=== PATIENT | female | born 1980 | race Hispanic/Latino ===

== ENCOUNTER 2017-10-13 09:44 | Emergency (ER) | payer SELFPAY ==
[~2017-10-13] VITALS: Ht 160 cm; Wt 85.3 kg
== END 2017-10-13 10:20 | disposition home or self-care (01) ==
LOC: FSED 09:44
DX: R21 Rash and other nonspecific skin eruption (principal); I10 Essential (primary) hypertension
CPT/HCPCS: 99282

== ENCOUNTER 2020-01-04 11:51 | Emergency (ER) | payer SELFPAY ==
[~2020-01-04] VITALS: Ht 160 cm; Wt 86.2 kg
[2020-01-04] MEDS ORDERED: IBUPROFEN 400 MG TAB PO STA (12:23)
[2020-01-04] MEDS ORDERED: IBUPROFEN 200 MG TAB PO STA (12:23)
[2020-01-04] MEDS ORDERED: IBUPROFEN 400 MG TAB ONE (12:32)
--- NOTE | 2020-01-04 13:04 | Diagnostic Imaging Report ---
Right ankle, 3 views Right foot, 3 views INDICATION: ^pain s/p twisting ankle 3 days ago Comparison: None available. Discussion: Multiple views of the right ankle and foot are negative for acute displaced fracture or dislocation. Talar down ankle mortise are intact. Small tibiotalar joint effusion is noted. Tiny plantar calcaneal spur is noted. Joint spaces are relatively well-maintained. Soft soft tissue swelling about the lateral malleolus is noted.. IMPRESSION: 1. Negative for acute displaced fracture or dislocation of the right foot or ankle. 2. Soft tissue swelling about the lateral malleolus may relate to ligamentous injury. Signed by: Westley Gary MD on 01/04/2020 1:01 PM
--- NOTE | 2020-01-04 13:45 | Emergency Department Note ---
History of Present Illnes History of Present Illness Chief Complaint: Extremity Trauma/Pain History of Present Illness This is a 39 year old female with right ankle and foot pain s/p twisting injury 3 days ago. States twisted while dancing. Had little pain after injury and able to keep dancing which patient attributes to being intoxicated. Pain worse the next day. Painful to bear weight. No numbness, tingling, weakness. Pain localized over lateral ankle and lateral/anterior foot. Historian: Patient Arrival Mode: [employer] Required: No Onset (how long ago): week(s) Radiation: Reports non-radiation Onset quality: sudden Duration (how long): day(s) Timing of current episode: constant Progression: worsening Relieving factors: rest Exacerbating factors: other (weight bearing) Associated symptoms: Denies chest pain, Denies cough, Denies diaphoresis, Denies fever/chills Treatments prior to arrival: other (tylenol #3 @ 0200 today) Past Medical/Family History Physician Review I have reviewed the patient's past medical and family history. Any updates have been documented here. Past Medical History Recent Fever: No Clinical Suspicion of Infectio: No New/Unexplained Change in Ment: No Past Medical History: Hypertension Other Medical History: Recent hospitalization (about 3 weeks ago) for chest pain - diagnosed with anxiety and GERD Past Surgical History: Cholecysctectomy Other Surgery: heart cath Social History Smoking Cessation: Current some day smoker Alcohol Use: Occasional Any Illegal Drug Use: No Other Last Tetanus: unk Any Pre-Existing Lines (PICC,: No Review of Systems Review of Systems Constitutional: Reports no symptoms; Denies chills, Denies diaphoresis, Denies fever EENTM: Reports no symptoms Cardiovascular: Reports no symptoms; Denies chest pain Respiratory: Denies cough, Denies dyspnea Gastrointestinal: Denies abdominal pain, Denies constipation, Denies diarrhea, Denies nausea Musculoskeletal: Reports no symptoms Neurological: Reports no symptoms Psychological: Denies anxiety, Denies depressed Hematological/Lymphatic: Reports no symptoms Physical Exam Related Data Allergies: Coded Allergies: No Known Allergies (Unverified , 02/23/15) Triage Vital Signs Vital Signs Date Time Temp Pulse Resp B/P (MAP) Pulse Ox O2 Delivery O2 Flow Rate FiO2 01/04/20 12:12 97.9 77 18 172/91 100 Room Air Physical Exam CONSTITUTIONAL Constitutional: Present well-developed, Present well-nourished HENT HENT: Present normocephalic, Present atraumatic, Present oropharynx clear/moist, Present nose normal EYES NECK Neck: Present ROM normal PULMONARY Pulmonary: Present effort normal, Present breath sounds normal CARDIOVASCULAR Cardiovascular: Present regular rhythm, Present heart sounds normal, Present capillary refill normal, Present normal rate GASTROINTESTINAL Abdominal: Present soft, Present nontender, Present bowel sounds normal GENITOURINARY SKIN Skin: Absent rash MUSCULOSKELETAL Musculoskeletal: Present other (right LE: lateral malleolus with swelling and tenderness. Right foot: tenderness to anterior foot. No tenderness over 5th metatarsal. LTSI left foot. brisk cap refill of toes on right foot. FROM of right ankle with pain.) NEUROLOGICAL Neurological: Present alert, Present oriented x 3, Present no gross motor or sensory deficits PSYCHOLOGICAL Psychological: Present mood/affect normal, Present judgement normal Results Imaging Impressions Right foot, 3 views INDICATION: ^pain s/p twisting ankle 3 days ago Comparison: None available. Discussion: Multiple views of the right ankle and foot are negative for acute displaced fracture or dislocation. Talar down ankle mortise are intact. Small tibiotalar joint effusion is noted. Tiny plantar calcaneal spur is noted. Joint spaces are relatively well-maintained. Soft soft tissue swelling about the lateral malleolus is noted.. IMPRESSION: 1. Negative for acute displaced fracture or dislocation of the right foot or ankle. 2. Soft tissue swelling about the lateral malleolus may relate to ligamentous injury. Signed by: Westley Gary MD on 01/04/2020 1:01 PM Right ankle, 3 views Right foot, 3 views Right ankle, 3 views INDICATION: ^pain s/p twisting ankle 3 days ago Comparison: None available. Discussion: Multiple views of the right ankle and foot are negative for acute displaced fracture or dislocation. Talar down ankle mortise are intact. Small tibiotalar joint effusion is noted. Tiny plantar calcaneal spur is noted. Joint spaces are relatively well-maintained. Soft soft tissue swelling about the lateral malleolus is noted.. IMPRESSION: 1. Negative for acute displaced fracture or dislocation of the right foot or ankle. 2. Soft tissue swelling about the lateral malleolus may relate to ligamentous injury. Signed by: Westley Gary MD on 01/04/2020 1:01 PM Assessment & Plan Medical Decision Making MDM Differential Dx includes fracture, dislocation, sprain, strain Reassessment Reassessment time: 13:44 Reassessment pain improved Assessment & Plan Final Impression: (1) Right ankle sprain Depart Disposition: HOME, SELF-CARE Last Vital Signs Date Time Temp Pulse Resp B/P (MAP) Pulse Ox O2 Delivery O2 Flow Rate FiO2 01/04/20 12:12 97.9 77 18 172/91 100 Room Air Home Meds Unable to Obtain Active Prescriptions or Reported Meds Medications in the ED 800mg Ibuprofen KADEN DANG MD Jan 04, 2020 12:32
--- OUTSIDE RECORDS SUMMARY | 2020-01-04 14:22 | XMS REPORT | Continuity of Care Document ---
Author Author [facility] t Organization [facility] Address [address] [place] [address] Phone Unavailable Care Team Providers Care Clinical Lab Clerk Name Role Phone NONSTAFF PCP Unavailable Michelle DANG Unavailable Payers Payer Name Policy Type Policy Number Effective Date Expiration Date Ladarius Santana o [id number] 2012 00:00:00 [facility] Problems Condition Name Condition Details Condition Category Status Onset Date Resolution Date Last Treatment Date Treating Clinician Comments Source Non-cardiac chest pain Chest pain, non-cardiac Problem Active [facility] Allergies, Adverse Reactions, Alerts Allergy Name Allergy Type Status Severity Reaction(s) Onset Date Inacti ve Date Treating Clinician Comments Source No Known Allergies DA Active U 2018-10-27 00:00:00 [facility] No Known Allergies DA Active U 2015-07-06 00:00:00 [facility] Medications This patient has no known medications. Procedures This patient has no known procedures. Encounters Start Date/Time End Date/Time Encounter Type Admission Type [facility] Facility Care Department Encounter ID Source 2018-08-25 13:20:23 Outpatient [facility]SE [facility] [id number] [facility] 2018-08-13 17:31:00 2018-08-13 17:31:00 Emergency E [facility]SE [facility]SE [id number] [facility] 2018-08-11 16:05:00 2018-08-11 16:05:00 Emergency E MHSE MHSE [id number] [facility] 2017-10-13 09:44:00 2017-10-13 10:20:00 Departed Emergency Room [facility] [id number] [facility] Results Test Description Test Time Test Comments Results Result Comments Source FOOT 3 VIEW RT - HOPD 2020-01-04 12:59:00 [facility] [address] [address] Patient Name: ISAIAS MARCELINO MR #: [id number] : 1980 Age/Sex: 39/F Req #: [id number] Adm Physician: Ordered by: KADEN DANG MD Report #: [id number] Location: [facility] Room/Bed: Procedure: [id number] HOPD/FOOT 3 VIEW RT - HOPD Exam Date: 01/04/20 Exam Time: 1240 REPORT STATUS: Signed Right ankle, 3 views Right foot, 3 views INDICATION: pain s/p twisting ankle 3 days ago Comparison: None available. Discussion: Multiple views of the right ankle and foot are negative for acute displaced fracture or dislocation. Talar down ankle mortise are intact. Small tibiotalar joint effusion is noted. Tiny plantar calcaneal spur is noted. Joint spaces are relatively well-maintained. Soft soft tissue swelling about the lateral malleolus is noted.. IMPRESSION: 1. Negative for acute displaced fracture or dislocation of the right foot or ankle. 2. Soft tissue swelling about the lateral malleolus may relate to ligamentous injury. Signed by: Jacquelyn Gary MD on 01/04/2020 1:01 PM Dictated By: JACQUELYN GARY MD 1301 Transcribed By: KASANDRA on 01/04/20 1301 COPY TO: KADEN DANG MD ANKLE 3 VIEW RT - HOPD 2020-01-04 12:59:00 [place] [address] Patient Name: ISAIAS MARCELINO MR #: [id number] : 1980 Age/Sex: 39/F Req #: [id number] Adm Physician: Ordered by: KADEN DANG MD Report #: [id number] Location: ED Room/Bed: Procedure: [id number] HOPD/ANKLE 3 VIEW RT - HOPD Exam Date: 01/04/20 Exam Time: 1239 REPORT STATUS: Signed Right ankle, 3 views Right foot, 3 views INDICATION: pain s/p twisting ankle 3 days ago Comparison: None available. Discussion: Multiple views of the right ankle and foot are negative for acute displaced fracture or dislocation. Talar down ankle mortise are intact. Small tibiotalar joint effusion is noted. Tiny plantar calcaneal spur is noted. Joint spaces are relatively well-maintained. Soft soft tissue swelling about the lateral malleolus is noted.. IMPRESSION: 1. Negative for acute displaced fracture or dislocation of the right foot or ankle. 2. Soft tissue swelling about the lateral malleolus may relate to ligamentous injury. Signed by: Jacquelyn Gary MD on 01/04/2020 1:01 PM Dictated By: JACQUELYN GARY MD 130 Transcribed By: KASANDRA on 01/04/20 1301 COPY TO: KADEN DANG MD CBC W/AUTO DIFF 2019-12-01 07:10:00 Test Item WHITE BLOOD CELL (test code = WBC) 7.44 x10 3/uL 4.5-11.0 N RED BLOOD CELL (test code = RBC) 3.90 x10 6/uL 3.54-5.02 N HEMOGLOBIN (test code = HGB) 9.9 g/dL 11.0-15.0 L HEMATOCRIT (test code = HCT) 33.6 % 33.0-45.0 N MEAN CELL VOLUME (test code = MCV) 86.2 fL 81.0-99.0 N MEAN CELL HGB (test code = MCH) 25.4 pg 27.0-33.0 L MEAN CELL HGB CONCETRATION (test code = MCHC) 29.5 g/dL 33.0-37. 0 L RED CELL DISTRIBUTION WIDTH CV (test code = RDW) 15.2 % 11.5- 14.5 H RED CELL DISTRIBUTION WIDTH SD (test code = RDW-SD) 47.8 fL 37 .0-54.0 N PLATELET COUNT (test code = PLT) 322 x10 3/uL 150-400 N MEAN PLATELET VOLUME (test code = MPV) 11.3 fL 7.0-9.0 H NEUTROPHIL % (test code = NT%) 58.7 % 56.0-77.0 N IMMATURE GRANULOCYTE % (test code = IG%) 0.4 % 0.0-2.0 N LYMPHOCYTE % (test code = LY%) 31.9 % 14.0-32.0 N MONOCYTE % (test code = MO%) 5.5 % 4.8-9.0 N EOSINOPHIL % (test code = EO%) 3.2 % 0.3-3.7 N BASOPHIL % (test code = BA%) 0.3 % 0.0-2.0 N NUCLEATED RBC % (test code = NRBC%) 0.0 % 0-0 N NEUTROPHIL # (test code = NT#) 4.37 x10 3/uL 2.0-7.6 N IMMATURE GRANULOCYTE # (test code = IG#) 0.03 x10 3/uL 0.00-0.03 N LYMPHOCYTE # (test code = LY#) 2.37 x10 3/uL 1.0-3.8 N MONOCYTE # (test code = MO#) 0.41 x10 3/uL 0.1-0.8 N EOSINOPHIL # (test code = EO#) 0.24 x10 3/uL 0.0-0.2 H BASOPHIL # (test code = BA#) 0.02 x10 3/uL 0.0-0.2 N NUCLEATED RBC # (test code = NRBC#) 0.00 x10 3/uL 0.0-0.1 N MANUAL DIFF REQUIRED (test code = MDIFF) NO - CTA CHEST FOR [id number] 14:02:00 Name: ISAIAS MARCELINO [facility] : 1980 Age/S: 39 / F [address] [place] [address] Unit #: [id number] Loc: [place] [address] Phys: Jered Rosado MD Acct: [id number] Dis Date: Status: ADM IN PHONE #: [phone] Exam Date: 11/30/2019 1331 FAX #: [phone] Reason: SEVERE PLEURITIC CP, HTN URGENCY EXAMS: CPT CODE: [id number] [place] [address] CTA Chest: HISTORY: Pleuritic chest pain, hypertension 2 mm helical images are obtained from lung apices through upper abdomen after the dynamic administration of IV contrast ( 100 ml Isovue-300 ). Computer generated 2D coronal reconstructions of the pulmonary arteries are obtained and 3D maximum intensity projection images. CT imaging performed at this location utilizes radiation dose optimization techniques which include one or more of the following: - Automated exposure control -Adjustment of the mA and/or kV according to patient size -Use of iterative reconstruction technique CT Radiation Dose DLP 628 mGy-cm COMPARISON: Chest x-ray 11/29/2019, CTA chest 09/06/2015 FINDINGS: No evidence of pulmonary artery filling defect in either lung. Normal caliber thoracic aorta without an aneurysm. No mediastinal mass or adenopathy. Limited images upper abdomen show cholecystectomy clips. Both lungs are clear. No infiltrate, pleural effusion or pneumothorax. No acute bony pathology. No vertebral compression IMPRESSION: No active process in the chest. No evidence of pulmonary emboli. SL: [id number] at 1402 Reported and signed by: Lul Meza M.D. CC: Jered Rosado MD Tech nologist:Pacheco Collins, RT(R) CTDI: DLP: Trnscb Date/Ti me: 11/30/2019 (1402) HarlanETG Orig Print D/T: S: 2019 (8011) PAGE 1 Signed Report CBC W/AUTO [id number] 08:44:00* Test Item Value Reference Range Interpretation Comments WHITE BLOOD CELL (test code = WBC) 9.04 x10 3/uL 4.5-11.0 N RED BLOOD CELL (test code = RBC) 4.12 x10 6/uL 3.54-5.02 N HEMOGLOBIN (test code = HGB) 10.8 g/dL 11.0-15.0 L HEMATOCRIT (test code = HCT) 35.9 % 33.0-45.0 N MEAN CELL VOLUME (test code = MCV) 87.1 fL 81.0-99.0 MEAN CELL HGB (test code = MCH) 26.2 pg 27.0-33.0 L MEAN CELL HGB CONCETRATION (test code = MCHC) 30.1 g/dL 33.0-37. 0 L RED CELL DISTRIBUTION WIDTH CV (test code = RDW) 15.6 % 11.5- 14.5 H RED CELL DISTRIBUTION WIDTH SD (test code = RDW-SD) 49.3 fL 37 .0-54.0 N PLATELET COUNT (test code = PLT) 378 x10 3/uL 150-400 N MEAN PLATELET VOLUME (test code = MPV) 11.4 fL 7.0-9.0 H NEUTROPHIL % (test code = NT%) 61.4 % 56.0-77.0 N IMMATURE GRANULOCYTE % (test code = IG%) 0.3 % 0.0-2.0 N LYMPHOCYTE % (test code = LY%) 28.0 % 14.0-32.0 N MONOCYTE % (test code = MO%) 5.8 % 4.8-9.0 N EOSINOPHIL % (test code = EO%) 4.1 % 0.3-3.7 H BASOPHIL % (test code = BA%) 0.4 % 0.0-2.0 N NUCLEATED RBC % (test code = NRBC%) 0.0 % 0-0 N NEUTROPHIL # (test code = NT#) 5.55 x10 3/uL 2.0-7.6 N IMMATURE GRANULOCYTE # (test code = IG#) 0.03 x10 3/uL 0.00-0.03 N LYMPHOCYTE # (test code = LY#) 2.53 x10 3/uL 1.0-3.8 N MONOCYTE # (test code = MO#) 0.52 x10 3/uL 0.1-0.8 N EOSINOPHIL # (test code = EO#) 0.37 x10 3/uL 0.0-0.2 H BASOPHIL # (test code = BA#) 0.04 x10 3/uL 0.0-0.2 N NUCLEATED RBC # (test code = NRBC#) 0.00 x10 3/uL 0.0-0.1 N MANUAL DIFF REQUIRED (test code = MDIFF) NO BASIC METABOLIC [id number] 08:34:00* Test Item Value Reference Range Interpretation Comments SODIUM (test code = NA) 136 mEq/L 134-147 N POTASSIUM (test code = K) 3.5 mEq/L 3.4-5.0 N CHLORIDE (test code = CL) 103 mEq/L 100-108 N CARBON DIOXIDE (test code = CO2) 25 mEq/L 21-33 N ANION GAP (test code = GAP) 12 0-20 N GLUCOSE (test code = GLU) 98 mg/dL 70-110 N BLOOD UREA NITROGEN (test code = BUN) 11 mg/dL 7-18 GLOMERULAR FILTRATION RATE (test code = GFR) 92.7 95-105 L Units of measure = ml/min/1.73 m2 CREATININE (test code = CREAT) 0.7 mg/dL 0.6-1.3 N CALCIUM (test code = CA) 9.1 mg/dL 8.0-10.5 N SED RATE [id number] 19:29:00* Test Item Value Reference Range Interpretation Comments SED RATE WESTERGREN (test code = SEDW) 14 mm/hr 0-20 N LIPID PROFILE (CORONARY RISK)2019-11-29 19:09:00* Test Item Value Reference Range Interpretation Comments TRIGLYCERIDES (test code = TRIG) 136 mg/dL 40-150 N CHOLESTEROL (test code = CHOL) 197 mg/dL <200 CHOLESTEROL/HDL RATIO (test code = CHOLHDL) 3.40 RATIO 3.27-4.44 N RISK ASSOCIATED WITH CHOL/HDL RATIOS: RISK MALE FEMALE1/2 AVERAGE 3.43 3.27AVERAGE 4.97 4.442X AVERAGE 9.55 7.053X AVERAGE 23.39 11.04 NOTE THAT THE REFERENCE VALUE IS RELATEDTO RISK LEVELS RECOMMENDED BY THE NATL.HEART, LUNG, AND BLOOD INST. HDL CHOLESTEROL (test code = HDL) 58.0 mg/dL 39-96 N LIPOPROTEIN LDL (test code = LDL) 112 mg/dL 0-100 H <100 [id number] NEAR OPTIMAL/ABOVE [id number] HIGH>QT=656 VERY HIGH*Guidelines provided by the National Cholesterol EducationProgram Adult Treatment Panel III T4 [id number] 19:09:00* Test Item Value Reference Range Interpretation Comments T4 FREE (test code = T4F) 1.0 ng/dL 0.77-1.61 N THYROID STIMULATING [id number] 19:09:00* Test Item Value Reference Range Interpretation Comments THYROID STIMULATING HORMONE (test code = TSH) 2.46 0.42-5.4 7 N Results in anna- International Units/mL [id number] 19:09:00* Test Item Value Reference Range Interpretation Comments TROPONIN-I (test code = TROPI) < 0.015 ng/mL 0.000-0.045 N Negative: <= 0.045 Positive: >= 0.046 Correlation with serial results, other cardiac markers andclinical findings is necessary to determine the clinicalsignificance of this result. Results using different methodologies should not be comparedto one another as quantitative results may vary by method. [id number] 18:53:00* Test Item Value Reference Range Interpretation Comments D-DIMER (test code = DDIMER) 474 ng/mlFEU <=500 N THROMBOSIS AND/OR PULMONARY EMBOLISM AND THE CLINICAL CUT- OFF VALUE FOR EXCLUSION (500 ng/mL FEU) OF THESE CONDITIONSIS VALIDATED BY THE MEDIEVAL ENGLISH LITERATURE PROFESSOR OF THE METHOD. A NEGATIVE D-DIMER RESULT WHEN COMBINED WITH A CLINICALASSESSMENT OF LOW PRETEST PROBABILITY HAS BEEN SHOWN TO HAVEA HIGH NEGATIVE PREDICTIVE VALUE OF DVT OR PE. D-DIMER VALUES >500 ng/mL FEU ARE NOT DIAGNOSTIC FOR DVT, PEor DIC WITHOUT OTHER CONFIRMATORY TESTS AND APPROPRIATECLINICAL EUALUATIONS. Coronavirus 2019 nCoV [id number] 16:32:00* Test Item Value Reference Range Interpretation Comments Coronavirus 2019 nCoV Bedside (test code = [id number]) Negative Negative Negative results should be treated as presumptive and, ifinconsistent with clinical signs and symptoms or necessaryfor patient management, should be tested with an alternativemolecular assay. Negative results do not preclude HOLY-UvV-1qdjvnzyaa and should not be used as the sole basis forpatient management decisions. Negative results should beconsidered in the context of a patient's recent exposures,history, presence of clinical signs and symptoms consistentwith COVID-19. [id number] 16:11:00* Test Item Value Reference Range Interpretation Comments TROPONIN-I (test code = TROPI) < 0.015 ng/mL 0.000-0.045 N Negative: <= 0.045 Positive: >= 0.046 Correlation with serial results, other cardiac markers andclinical findings is necessary to determine the clinicalsignificance of this result. Results using different methodologies should not be comparedto one another as quantitative results may vary by method. B-TYPE NATRIURETIC [id number] 15:20:00* Test Item Value Reference Range Interpretation Comments B-TYPE NATRIURETIC PEPTIDE (test code = BNP) 7.8 PG/ML 0-100 N BASIC METABOLIC [id number] 14:40:00* Test Item Value Reference Range Interpretation Comments SODIUM (test code = NA) 139 mEq/L 134-147 N POTASSIUM (test code = K) 3.9 mEq/L 3.4-5.0 N CHLORIDE (test code = CL) 106 mEq/L 100-108 N CARBON DIOXIDE (test code = CO2) 25 mEq/L 21-33 N ANION GAP (test code = GAP) 12 0-20 N GLUCOSE (test code = GLU) 111 mg/dL 70-110 H BLOOD UREA NITROGEN (test code = BUN) 8 mg/dL 7-18 N GLOMERULAR FILTRATION RATE (test code = GFR) 79.4 95-105 L Units of measure = ml/min/1.73 m2 CREATININE (test code = CREAT) 0.8 mg/dL 0.6-1.3 N CALCIUM (test code = CA) 8.9 mg/dL 8.0-10.5 N HEPATIC FUNCTION [id number] 14:40:00* Test Item Value Reference Range Interpretation Comments TOTAL PROTEIN (test code = PROT) 7.7 g/dL 6.4-8.2 N ALBUMIN (test code = ALB) 3.70 g/dL 3.4-5.0 N BILIRUBIN TOTAL (test code = BILT) 0.2 MG/DL <1.5 N BILIRUBIN DIRECT (test code = BILD) < 0.10 MG/DL 0.0-0.30 N BILIRUBIN INDIRECT (test code = BILIND) 0.10 MG/DL SGOT/AST (test code = AST) 14 IUnit/L 15-37 L SGPT/ALT (test code = ALT) 33 IUnit/L 15-65 N ALKALINE PHOSPHATASE TOTAL (test code = ALKP) 88 IUnit/L 20-125 N [id number] 14:40:00* Test Item Value Reference Range Interpretation Comments TROPONIN-I (test code = TROPI) < 0.015 ng/mL 0.000-0.045 N Negative: <= 0.045 Positive: >= 0.046 Correlation with serial results, other cardiac markers andclinical findings is necessary to determine the clinicalsignificance of this result. Results using different methodologies should not be comparedto one another as quantitative results may vary by method. BASIC METABOLIC [id number] 14:39:00* Test Item Value Reference Range Interpretation Comments SODIUM (test code = NA) mEq/L 134-147 POTASSIUM (test code = K) mEq/L 3.4-5.0 CHLORIDE (test code = CL) mEq/L 100-108 CARBON DIOXIDE (test code = CO2) mEq/L 21-33 ANION GAP (test code = GAP) 0-20 GLUCOSE (test code = GLU) mg/dL 70-110 BLOOD UREA NITROGEN (test code = BUN) mg/dL 7-18 GLOMERULAR FILTRATION RATE (test code = GFR) 95-105 CREATININE (test code = CREAT) mg/dL 0.6-1.3 CALCIUM (test code = CA) mg/dL 8.0-10.5 HEPATIC FUNCTION [id number] 14:39:00* Test Item Value Reference Range Interpretation Comments TOTAL PROTEIN (test code = PROT) g/dL 6.4-8.2 ALBUMIN (test code = ALB) g/dL 3.4-5.0 BILIRUBIN TOTAL (test code = BILT) MG/DL <1.5 BILIRUBIN DIRECT (test code = BILD) MG/DL 0.0-0.30 SGOT/AST (test code = AST) IUnit/L 15-37 SGPT/ALT (test code = ALT) IUnit/L 15-65 ALKALINE PHOSPHATASE TOTAL (test code = ALKP) IUnit/L 20-125 [id number] 14:39:00* Test Item Value Reference Range Interpretation Comments TROPONIN-I (test code = TROPI) < 0.015 ng/mL 0.000-0.045 N Negative: <= 0.045 Positive: >= 0.046 Correlation with serial results, other cardiac markers andclinical findings is necessary to determine the clinicalsignificance of this result. Results using different methodologies should not be comparedto one another as quantitative results may vary by method. CBC W/AUTO [id number] 14:32:00* Test Item Value Reference Range Interpretation Comments WHITE BLOOD CELL (test code = WBC) 13.49 x10 3/uL 4.5-11.0 H RED BLOOD CELL (test code = RBC) 4.55 x10 6/uL 3.54-5.02 N HEMOGLOBIN (test code = HGB) 11.6 g/dL 11.0-15.0 N HEMATOCRIT (test code = HCT) 37.7 % 33.0-45.0 N MEAN CELL VOLUME (test code = MCV) 82.9 fL 81.0-99.0 N MEAN CELL HGB (test code = MCH) 25.5 pg 27.0-33.0 L MEAN CELL HGB CONCETRATION (test code = MCHC) 30.8 g/dL 33.0-37. 0 L RED CELL DISTRIBUTION WIDTH CV (test code = RDW) 15.0 % 11.5- 14.5 H RED CELL DISTRIBUTION WIDTH SD (test code = RDW-SD) 45.1 fL 37 .0-54.0 N PLATELET COUNT (test code = PLT) 397 x10 3/uL 150-400 N MEAN PLATELET VOLUME (test code = MPV) 10.6 fL 7.0-9.0 H NEUTROPHIL % (test code = NT%) 79.1 % 56.0-77.0 H IMMATURE GRANULOCYTE % (test code = IG%) 0.4 % 0.0-2.0 N LYMPHOCYTE % (test code = LY%) 14.1 % 14.0-32.0 N MONOCYTE % (test code = MO%) 5.0 % 4.8-9.0 N EOSINOPHIL % (test code = EO%) 1.0 % 0.3-3.7 N BASOPHIL % (test code = BA%) 0.4 % 0.0-2.0 N NUCLEATED RBC % (test code = NRBC%) 0.0 % 0-0 N NEUTROPHIL # (test code = NT#) 10.68 x10 3/uL 2.0-7.6 H IMMATURE GRANULOCYTE # (test code = IG#) 0.05 x10 3/uL 0.00-0.03 H LYMPHOCYTE # (test code = LY#) 1.90 x10 3/uL 1.0-3.8 N MONOCYTE # (test code = MO#) 0.68 x10 3/uL 0.1-0.8 N EOSINOPHIL # (test code = EO#) 0.13 x10 3/uL 0.0-0.2 N BASOPHIL # (test code = BA#) 0.05 x10 3/uL 0.0-0.2 N NUCLEATED RBC # (test code = NRBC#) 0.00 x10 3/uL 0.0-0.1 N MANUAL DIFF REQUIRED (test code = MDIFF) NO - XR CHEST 1 [id number] 14:28:00 FAX: Dimitri Vazquez DO [phone] [place]: St: PRE Name: Alanna CHINGISAIASL [facility] : [birth year] Age/S: 39/F [address] [place] [address] Unit #: [id number] Loc: [place] [address] Phys: Dimitri Philip DO Acct: [id number] Dis Date: Status: PRE ER PHONE #: [phone] Exam Date: 11/29/2019 1422 FAX #: [phone] Reason: SOB EXAMS: CPT CODE: [id number] XR CHEST 1 V 36544 Single view chest: H ISTORY: Short of breath. FINDINGS: Both lungs are clear. The hear t and mediastinal contours are stable from 10/27/2018. IMPR ESSION: No acute finding. SL: [id number] at 1428 Reported and signed by: Lul Meza M.D. CC: Dimitri Philip DO Technologist: Aliya Burnett, RT(R); Kari Watt, RT(R) [facility] Date/Time/By: 11/29/2019 (6430) : By: tARABELLAETG Orig Print D/T: S: 11/29/2019 (9738) PAGE 1 Signed Report GASTRIC,[id number] 16:42:00 RUN DATE: 11/05/18 [facility] PAGE 1 RUN TIME: 1642 Specimen Inqui ry RUN USER: INTERFACE PATIENT: ISAIAS MARCELINO ACCT #: [id number] LOC: [facility] U #: [id number] AGE/SX: 37/F ROOM: RE10/31/18REG DR: Rosana Lynch MD : 78 BED: DIS: STATUS: [facility] TLOC: SPEC #: [id number] RECD: 10/31/18 STATUS: RIYA BAKER #: [id number] TANNA: 10/31/[address]: Rosana Lynch MD ENTERED: 10/31/18 SP TYPE: GASTRIC BX OTHR DR: Betty Salgado MD ORDERED: GROSS COPIES TO: Betty Moreau MD [address] [place], [place] [address] Salvatore Lynch MD [address] [place] [address] PROCEDURES: GROSS (609) TISSUES: 1. ANTRUM - BODY BX 2. ESOPHAGUS, NOS - DISTAL BX CLINICAL HISTORY COLLECTION DATE: 10/31/2018 EPIGAST HARRIET PAIN; HEARTBURN; NAUSEA; BLOOD IN STOOL POST-OP DIAGNOSIS: ESOPHAGITIS; G ASTRITIS; INTERNAL HEMORRHOIDS FINAL DIAGNOSIS Antrum and body, biops y: REACTIVE GASTROPATHY AND MILD ACUTE AND CHRONIC INFLAMMATION NO INTESTINAL METAPLASIA SEEN NEGATIVE FOR HELICOBACTER PYLORI NEGAT IRMA FOR MALIGNANCY Distal esophagus, biopsy: SQUAMOUS ESOPHAGEA L MUCOSA WITH REACTIVE EPITHELIAL CHANGES CONSISTENT WITH REFLUX NEGATIVE FOR METAPLASIA, DYSPLASIA, AND MALIGNANCY HIMA/lui Porter 1906 00, [address] CONTINUED ON NEXT PAGE --RUN DATE: 11/05/18 [place] - Lab PAGE 2 RUN TIME: 1642 Specimen Inquiry RUN USER: INTERFACE SPEC #: [id number] PATIENT: ISAIAS MARCELINO #[id number] ([facility]) MACROSCOPIC Specime n (1) is received in formalin, labeled with the patient's name, identified as "antrum and body", and consists of pink-dunham biopsy tissue measuring 0.35 cm in aggregate, submitted as (1) for H E and giemsa stains. Specimen (2) is re ceived in formalin, labeled with the patient's name, identified as "distal eso phagus", and consists of a single pink dunham biopsy fragment measuring 0.15 cm, submitted as (2). GROSS PERFORMED AT [facility] [address] [place] [address] [phone] MICROSCOPIC All of the stains, including any controls pe rformed, stain appropriately. MICROSCOPIC PERFORMED AT [facility] [address] [place] [address] [phone] PERFORMING SITE Diagnosis performed at: [facility] [address] [facility], [place] [id number] Si gned SIGNATURE ON FILE Katie Rayo MD 11/05/18 4692 END OF REPORT UR HCG [id number] 13:15:00* Test Item Value Reference Range Interpretation Comments UR HCG QUAL (test code = HCGQLU) NEGATIVE This HCGQL test is NOT applicable for MALE patients.Check with nurse about probable order error.If Tumor Marker Test needed, nurse should order test "HCGTU"(Test #[id number]) CBC W/AUTO [id number] 13:33:00* Test Item Value Reference Range Interpretation Comments WHITE BLOOD CELL (test code = WBC) 10.6 K/mm3 4.5-12.5 N RED BLOOD CELL (test code = RBC) 4.59 mill/mm3 3.7-5.2 N HEMOGLOBIN (test code = HGB) 12.1 gram/dL 11.5-15.5 N HEMATOCRIT (test code = HCT) 39.5 % 36.0-46.0 N MEAN CELL VOLUME (test code = MCV) 86.1 fL 80-98 N MEAN CELL HGB (test code = MCH) 26.4 picogram 27.0-33.0 L MEAN CELL HGB CONCETRATION (test code = MCHC) 30.6 gram/dL 33.0-36. 0 L RED CELL DISTRIBUTION WIDTH (test code = RDW) 13.7 % 11.6-16. 2 N RED CELL DISTRIBUTION WIDTH SD (test code = RDW-SD) 43.3 fL 37 .0-51.0 N PLATELET COUNT (test code = PLT) 331 K/mm3 150-450 N MEAN PLATELET VOLUME (test code = MPV) 10.9 fL 6.7-11.0 N NEUTROPHIL % (test code = NT%) 61.9 % 39.0-69.0 N IMMATURE GRANULOCYTE % (test code = IG%) 0.7 % 0.0-5.0 N LYMPHOCYTE % (test code = LY%) 27.7 % 25.0-55.0 N MONOCYTE % (test code = MO%) 7.0 % 0.0-10.0 N EOSINOPHIL % (test code = EO%) 2.2 % 0.0-5.0 N BASOPHIL % (test code = BA%) 0.5 % 0.0-1.0 N NUCLEATED RBC % (test code = NRBC%) 0.0 % 0-0 N NEUTROPHIL # (test code = NT#) 6.56 K/mm3 1.8-7.7 N IMMATURE GRANULOCYTE # (test code = IG#) 0.07 x10 3/uL 0-0.03 H LYMPHOCYTE # (test code = LY#) 2.93 K/mm3 1.0-5.0 N MONOCYTE # (test code = MO#) 0.74 K/mm3 0-0.8 N EOSINOPHIL # (test code = EO#) 0.23 K/mm3 0.0-0.5 N BASOPHIL # (test code = BA#) 0.05 K/mm3 0.0-0.2 N NUCLEATED RBC # (test code = NRBC#) 0.00 K/mm3 0.0-0.1 N MANUAL DIFF REQUIRED (test code = MDIFF) NO CBC W/AUTO [id number] 13:21:00* Test Item Value Reference Range Interpretation Comments WHITE BLOOD CELL (test code = WBC) K/mm3 4.5-12.5 RED BLOOD CELL (test code = RBC) mill/mm3 3.7-5.2 HEMOGLOBIN (test code = HGB) 12.1 gram/dL 11.5-15.5 N HEMATOCRIT (test code = HCT) 39.5 % 36.0-46.0 N MEAN CELL VOLUME (test code = MCV) fL 80-98 MEAN CELL HGB (test code = MCH) picogram 27.0-33.0 MEAN CELL HGB CONCETRATION (test code = MCHC) gram/dL 33.0-36. 0 RED CELL DISTRIBUTION WIDTH (test code = RDW) % 11.6-16. 2 RED CELL DISTRIBUTION WIDTH SD (test code = RDW-SD) fL 37 .0-51.0 PLATELET COUNT (test code = PLT) K/mm3 150-450 MEAN PLATELET VOLUME (test code = MPV) fL 6.7-11.0 NEUTROPHIL % (test code = NT%) % 39.0-69.0 IMMATURE GRANULOCYTE % (test code = IG%) % 0.0-5.0 LYMPHOCYTE % (test code = LY%) % 25.0-55.0 MONOCYTE % (test code = MO%) % 0.0-10.0 EOSINOPHIL % (test code = EO%) % 0.0-5.0 BASOPHIL % (test code = BA%) % 0.0-1.0 NEUTROPHIL # (test code = NT#) K/mm3 1.8-7.7 LYMPHOCYTE # (test code = LY#) K/mm3 1.0-5.0 MONOCYTE # (test code = MO#) K/mm3 0-0.8 EOSINOPHIL # (test code = EO#) K/mm3 0.0-0.5 BASOPHIL # (test code = BA#) K/mm3 0.0-0.2 BASIC METABOLIC [id number] 13:19:00* Test Item Value Reference Range Interpretation Comments SODIUM (test code = NA) 142 mmol/L 136-145 N POTASSIUM (test code = K) 3.7 mmol/L 3.5-5.1 N CHLORIDE (test code = CL) 108.0 mmol/L 98-107 H CARBON DIOXIDE (test code = CO2) 26.0 mmol/L 21-32 N ANION GAP (test code = GAP) 11.7 10-20 N GLUCOSE (test code = GLU) 86 mg/dL 74-106 N BLOOD UREA NITROGEN (test code = BUN) 15 mg/dL 7-18 N GLOMERULAR FILTRATION RATE (test code = GFR) > 60 mL/min >=60 Estimated GFR by using Modified MDRD formula.Chronic kidney disease is defined as either kidney damageor GFR <60 mL/min/1.73 m2 for >3 months. CREATININE (test code = CREAT) 1.00 mg/dL 0.55-1.02 N Note change in reference range due to change in reagent. BUN/CREATININE RATIO (test code = BUN/CREA) 15.0 10-20 N CALCIUM (test code = CA) 9.1 mg/dL 8.5-10.1 N BASIC METABOLIC [id number] 13:12:00* Test Item Value Reference Range Interpretation Comments SODIUM (test code = NA) 142 mmol/L 136-145 N POTASSIUM (test code = K) 3.7 mmol/L 3.5-5.1 N CHLORIDE (test code = CL) 108.0 mmol/L 98-107 H CARBON DIOXIDE (test code = CO2) mmol/L 21-32 ANION GAP (test code = GAP) 10-20 GLUCOSE (test code = GLU) mg/dL 74-106 BLOOD UREA NITROGEN (test code = BUN) mg/dL 7-18 GLOMERULAR FILTRATION RATE (test code = GFR) mL/min >=60 CREATININE (test code = CREAT) mg/dL 0.55-1.02 BUN/CREATININE RATIO (test code = BUN/CREA) 10-20 CALCIUM (test code = CA) mg/dL 8.5-10.1 - CT ABD PELVIS [id number] 22:12:00 Name: IHSAN MARCELINO [facility] : 1980 Age/S: 37 / F [address] [facility] Unit #: [id number] Loc: [place] [address] Phys: Kathy Olson MD Acct: [id number] Dis Date: Status: REG ER PHONE #: [phone] Exam Date: 10/27/2018 2200 FAX #: [phone] Reason: constipation, abd pain EXAMS: CPT CODE: [id number] CT ABD PELVIS W/CONT [id number] REASON FOR EXAM: constipation, abd pain EXAM ORDER DATE: 10/27/2018 9:03 PM Ordering M.D.: Kathy Olson MD PROCEDURE: - CT ABD PELVIS W/CONT COMPARISON: FINDINGS: CT images of the abdomen and pelvis were obtained with IV and without oral contrast at 5mm. Dose modulation, iterative reconstruction, and/or weight based adjustment of the MA/KV was utilized to reduce the radiation dose to as low as reasonably achievable. Intravenous contrast: 100cc of Omnipaque 370. The liver, spleen, pancreas are grossly within normal limits. The patient is status post cholecystectomy The kidneys are within normal limits. The urinary bladder is unremarkable. The colon, small bowel, and stomach are within normal limits without evidence of obstruction. The appendix is unremarkable. No evidence of free air or free fluid. The uterus is unremarkable. IMPRESSION: 4.5 cm left ovarian cyst. No acute findings in the abdomen at 2212 Reported and signed by: Preston Mora M.D. CC: Jacqueline Muniz MD; Kathy Olson MD Technologist:Stefania Hernandez RT(R); SUMMER Martinez CTDI: DLP: Trnscb Date/Time: 10/27/2018 (2211) t.LISAL Orig Print D/T: S: 10/27/2018 (2214) PAGE 1 Signed Report URINALYSIS [id number] 22:06:00* Test Item Value Reference Range Interpretation Comments UA COLOR (test code = COLU) COLORLESS YELLOW A UA APPEARANCE (test code = APPU) CLEAR CLEAR UA GLUCOSE DIPSTICK (test code = DGLUU) NEGATIVE mg/dL NEGATIVE UA BILIRUBIN DIPSTICK (test code = BILU) NEGATIVE mg/dL NEGATIVE UA KETONE DIPSTICK (test code = KETU) NEGATIVE mg/dL NEGATIVE UA SPECIFIC GRAVITY (test code = SGU) 1.005 1.001-1.035 UA BLOOD DIPSTICK (test code = HUGO) Negative mg/dL NEGATIVE UA PH DIPSTICK (test code = ELIZABETH) 7.0 5.0-8.0 UA PROTEIN DIPSTICK (test code = PROU) NEGATIVE mg/dL NEGATIVE UA UROBILINIOGEN DIPSTICK (test code = URO) Normal mg/dL NEGATIVE UA NITRITE DIPSTICK (test code = FLYNN) NEGATIVE NEGATIVE UA LEUKOCYTE ESTERASE W REFLEX (test code = LEUUR) NEGATIVE Jailene/uL NEGATIVE UA WBC (test code = WBCU) 0-5 per HPF 0-5 UA RBC (test code = RBCU) 0-2 #/HPF 0-5 UA EPITHELIAL CELLS (test code = EPIU) FEW per HPF FEW UA BACTERIA (test code = BACU) FEW #/HPF NONE A Urine Source? Clean CatchURINALYSIS [id number] 22:04:00* Test Item Value Reference Range Interpretation Comments UA COLOR (test code = COLU) COLORLESS YELLOW A UA APPEARANCE (test code = APPU) CLEAR CLEAR UA GLUCOSE DIPSTICK (test code = DGLUU) NEGATIVE mg/dL NEGATIVE UA BILIRUBIN DIPSTICK (test code = BILU) NEGATIVE mg/dL NEGATIVE UA KETONE DIPSTICK (test code = KETU) NEGATIVE mg/dL NEGATIVE UA SPECIFIC GRAVITY (test code = SGU) 1.005 1.001-1.035 UA BLOOD DIPSTICK (test code = HUGO) Negative mg/dL NEGATIVE UA PH DIPSTICK (test code = ELIZABETH) 7.0 5.0-8.0 UA PROTEIN DIPSTICK (test code = PROU) NEGATIVE mg/dL NEGATIVE UA UROBILINIOGEN DIPSTICK (test code = URO) Normal mg/dL NEGATIVE UA NITRITE DIPSTICK (test code = FLYNN) NEGATIVE NEGATIVE UA LEUKOCYTE ESTERASE W REFLEX (test code = LEUUR) NEGATIVE Jailene/uL NEGATIVE UA WBC (test code = WBCU) per HPF 0-5 UA RBC (test code = RBCU) per HPF 0-5 UA EPITHELIAL CELLS (test code = EPIU) per HPF Few UA BACTERIA (test code = BACU) per HPF NONE Urine Source? Clean CatchB-TYPE NATRIURETIC [id number] 19:38:00* Test Item Value Reference Range Interpretation Comments B-TYPE NATRIURETIC PEPTIDE (test code = BNP) 42.00 pgram/mL 0-100 N COMPREHENSIVE METABOLIC [id number] 19:25:00* Test Item Value Reference Range Interpretation Comments SODIUM (test code = NA) 142 mmol/L 136-145 N POTASSIUM (test code = K) 3.8 mmol/L 3.5-5.1 N CHLORIDE (test code = CL) 107.0 mmol/L 98-107 N CARBON DIOXIDE (test code = CO2) 27.0 mmol/L 21-32 N ANION GAP (test code = GAP) 11.8 10-20 N GLUCOSE (test code = GLU) 93 mg/dL 74-106 N BLOOD UREA NITROGEN (test code = BUN) 14 mg/dL 7-18 N GLOMERULAR FILTRATION RATE (test code = GFR) > 60 mL/min >=60 Estimated GFR by using Modified MDRD formula.Chronic kidney disease is defined as either kidney damageor GFR <60 mL/min/1.73 m2 for >3 months. CREATININE (test code = CREAT) 0.80 mg/dL 0.55-1.02 N Note change in reference range due to change in reagent. BUN/CREATININE RATIO (test code = BUN/CREA) 17.5 10-20 N TOTAL PROTEIN (test code = PROT) 7.2 gram/dL 6.4-8.2 N ALBUMIN (test code = ALB) 3.5 g/dL 3.4-5.0 N GLOBULIN (test code = GLOB) 3.7 gram/dL 2.7-4.2 N ALBUMIN/GLOBULIN RATIO (test code = A/G) 1.0 0.75-1.50 N CALCIUM (test code = CA) 8.6 mg/dL 8.5-10.1 N BILIRUBIN TOTAL (test code = BILT) 0.10 mg/dL 0.0-1.0 N SGOT/AST (test code = AST) 12 IUnit/L 15-37 L SGPT/ALT (test code = ALT) 29 IUnit/L 12-78 N ALKALINE PHOSPHATASE TOTAL (test code = ALKP) 85 IUnit/L 45-117 N Note change in reference range due to change in reagent. [id number] 19:25:00* Test Item Value Reference Range Interpretation Comments LIPASE (test code = LIP) 196 U/L 73.0-393.0 N HCG SERUM [id number] 19:25:00* Test Item Value Reference Range Interpretation Comments HCG SERUM QUAL (test code = HCGQL) NEGATIVE NEGATIVE This HCGQL test is NOT applicable for MALE patients.Check with nurse about probable order error.If Tumor Marker Test needed, nurse should order test "HCGTU"(Test #550.15995) [id number] 19:25:00* Test Item Value Reference Range Interpretation Comments CKMB (test code = CKMBT) < 1.0 ng/mL 0-6.0 N [id number] 19:25:00* Test Item Value Reference Range Interpretation Comments TROPONIN-I (test code = TROPI) <0.015 ng/mL 0-0.045 N - XR CHEST 2 [id number] 19:22:00 FAX: Kathy Mott [phone] [place]: St: REG Name: IHSAN ANTONY [facility] : [birth year] Age/S: 37/F [address] Unit #: [id number] Loc: [place] [address] Phys: Kathy Olson MD Acct: [id number] Dis Date: Status: REG ER PHONE #: [phone] Exam Date: 10/27/2018 191 FAX #: [phone] Reason: cp EXAMS: CPT CODE: [id number] XR CHEST 2 V 18853 REASON FOR EXAM: cp Exam Order Date: 10/27/2018 6:38 PM Ordering Roberto.: Kathy Olson MD PROCEDURE: - XR CHEST 2 V COMPARISON: FINDINGS: PA and lateral views of the chest show clear lungs wit hout evidence of consolidation. No evidence of effusion. The heart size is within normal limits. Pulmonary vasculatures are unremarkable. The osseous structures are grossly intact. IMPRESSION: No active dis ease. at 1922 Reported and signed by: Preston Mora M.D. CC: Kathy Olson MD Technologist: SHAHZAD SIERRA(R) Trnscrd Date/Time/By: 019 (1921) : By: Jarad Orig Print D/T: S: 10/27/2018 (1924) PAGE 1 Signed Report COMPREHENSIVE METABOLIC [id number] 19:14:00* Test Item Value Reference Range Interpretation Comments SODIUM (test code = NA) 142 mmol/L 136-145 N POTASSIUM (test code = K) 3.8 mmol/L 3.5-5.1 N CHLORIDE (test code = CL) 107.0 mmol/L 98-107 N CARBON DIOXIDE (test code = CO2) mmol/L 21-32 ANION GAP (test code = GAP) 10-20 GLUCOSE (test code = GLU) mg/dL 74-106 BLOOD UREA NITROGEN (test code = BUN) mg/dL 7-18 GLOMERULAR FILTRATION RATE (test code = GFR) mL/min >=60 CREATININE (test code = CREAT) mg/dL 0.55-1.02 BUN/CREATININE RATIO (test code = BUN/CREA) 10-20 TOTAL PROTEIN (test code = PROT) gram/dL 6.4-8.2 ALBUMIN (test code = ALB) g/dL 3.4-5.0 GLOBULIN (test code = GLOB) gram/dL 2.7-4.2 ALBUMIN/GLOBULIN RATIO (test code = A/G) 0.75-1.50 CALCIUM (test code = CA) mg/dL 8.5-10.1 BILIRUBIN TOTAL (test code = BILT) mg/dL 0.0-1.0 SGOT/AST (test code = AST) IUnit/L 15-37 SGPT/ALT (test code = ALT) IUnit/L 12-78 ALKALINE PHOSPHATASE TOTAL (test code = ALKP) IUnit/L 45-117 [id number] 19:14:00* Test Item Value Reference Range Interpretation Comments LIPASE (test code = LIP) U/L 73.0-393.0 HCG SERUM [id number] 19:14:00* Test Item Value Reference Range Interpretation Comments HCG SERUM QUAL (test code = HCGQL) NEGATIVE NEGATIVE This HCGQL test is NOT applicable for MALE patients.Check with nurse about probable order error.If Tumor Marker Test needed, nurse should order test "HCGTU"(Test #550.27876) [id number] 19:14:00* Test Item Value Reference Range Interpretation Comments CKMB (test code = CKMBT) ng/mL 0-6.0 [id number] 19:14:00* Test Item Value Reference Range Interpretation Comments TROPONIN-I (test code = TROPI) ng/mL 0-0.045 COMPREHENSIVE METABOLIC [id number] 19:13:00* Test Item Value Reference Range Interpretation Comments SODIUM (test code = NA) 142 mmol/L 136-145 N POTASSIUM (test code = K) 3.8 mmol/L 3.5-5.1 N CHLORIDE (test code = CL) 107.0 mmol/L 98-107 N CARBON DIOXIDE (test code = CO2) mmol/L 21-32 ANION GAP (test code = GAP) 10-20 GLUCOSE (test code = GLU) mg/dL 74-106 BLOOD UREA NITROGEN (test code = BUN) mg/dL 7-18 GLOMERULAR FILTRATION RATE (test code = GFR) mL/min >=60 CREATININE (test code = CREAT) mg/dL 0.55-1.02 BUN/CREATININE RATIO (test code = BUN/CREA) 10-20 TOTAL PROTEIN (test code = PROT) gram/dL 6.4-8.2 ALBUMIN (test code = ALB) g/dL 3.4-5.0 GLOBULIN (test code = GLOB) gram/dL 2.7-4.2 ALBUMIN/GLOBULIN RATIO (test code = A/G) 0.75-1.50 CALCIUM (test code = CA) mg/dL 8.5-10.1 BILIRUBIN TOTAL (test code = BILT) mg/dL 0.0-1.0 SGOT/AST (test code = AST) IUnit/L 15-37 SGPT/ALT (test code = ALT) IUnit/L 12-78 ALKALINE PHOSPHATASE TOTAL (test code = ALKP) IUnit/L 45-117 [id number] 19:13:00* Test Item Value Reference Range Interpretation Comments LIPASE (test code = LIP) U/L 73.0-393.0 HCG SERUM [id number] 19:13:00* Test Item Value Reference Range Interpretation Comments HCG SERUM QUAL (test code = HCGQL) NEGATIVE [id number] 19:13:00* Test Item Value Reference Range Interpretation Comments CKMB (test code = CKMBT) ng/mL 0-6.0 [id number] 19:13:00* Test Item Value Reference Range Interpretation Comments TROPONIN-I (test code = TROPI) ng/mL 0-0.045 CBC W/AUTO [id number] 19:00:00* Test Item Value Reference Range Interpretation Comments WHITE BLOOD CELL (test code = WBC) 10.6 K/mm3 4.5-12.5 N RED BLOOD CELL (test code = RBC) 4.46 mill/mm3 3.7-5.2 N HEMOGLOBIN (test code = HGB) 11.9 gram/dL 11.5-15.5 N HEMATOCRIT (test code = HCT) 38.1 % 36.0-46.0 N MEAN CELL VOLUME (test code = MCV) 85.4 fL 80-98 N MEAN CELL HGB (test code = MCH) 26.7 picogram 27.0-33.0 L MEAN CELL HGB CONCETRATION (test code = MCHC) 31.2 gram/dL 33.0-36. 0 L RED CELL DISTRIBUTION WIDTH (test code = RDW) 13.8 % 11.6-16. 2 N RED CELL DISTRIBUTION WIDTH SD (test code = RDW-SD) 43.6 fL 37 .0-51.0 N PLATELET COUNT (test code = PLT) 302 K/mm3 150-450 N MEAN PLATELET VOLUME (test code = MPV) 10.1 fL 6.7-11.0 N NEUTROPHIL % (test code = NT%) 66.7 % 39.0-69.0 N IMMATURE GRANULOCYTE % (test code = IG%) 0.6 % 0.0-5.0 N LYMPHOCYTE % (test code = LY%) 24.4 % 25.0-55.0 L MONOCYTE % (test code = MO%) 5.5 % 0.0-10.0 N EOSINOPHIL % (test code = EO%) 2.5 % 0.0-5.0 N BASOPHIL % (test code = BA%) 0.3 % 0.0-1.0 N NUCLEATED RBC % (test code = NRBC%) 0.0 % 0-0 N NEUTROPHIL # (test code = NT#) 7.05 K/mm3 1.8-7.7 N IMMATURE GRANULOCYTE # (test code = IG#) 0.06 x10 3/uL 0-0.03 H LYMPHOCYTE # (test code = LY#) 2.57 K/mm3 1.0-5.0 N MONOCYTE # (test code = MO#) 0.58 K/mm3 0-0.8 N EOSINOPHIL # (test code = EO#) 0.26 K/mm3 0.0-0.5 N BASOPHIL # (test code = BA#) 0.03 K/mm3 0.0-0.2 N NUCLEATED RBC # (test code = NRBC#) 0.00 K/mm3 0.0-0.1 N
== END 2020-01-04 13:50 | disposition home or self-care (01) ==
LOC: FSED 12:27
DX: S93.401A Sprain of unspecified ligament of right ankle, initial encounter (principal); X50.1XXA Overexertion from prolonged static or awkward postures, initial encounter; Y93.41 Activity, dancing; Y92.89 Other specified places as the place of occurrence of the external cause; K21.9 Gastro-esophageal reflux disease without esophagitis; F41.9 Anxiety disorder, unspecified; F17.210 Nicotine dependence, cigarettes, uncomplicated
CPT/HCPCS: 99284

== ENCOUNTER 2020-03-22 03:05 | Emergency (ER) | payer OTHER ==
[~2020-03-22] VITALS: Ht 162.6 cm; Wt 83.9 kg
[2020-03-22] MEDS ORDERED: DIPHENHYDRAMINE HCL INJ 50 MG/ML VIAL ONE (03:23)
[2020-03-22] MEDS ORDERED: METHYLPREDNISOLONE SOD SUCC 125 MG/2ML VIAL ONE (03:23)
[2020-03-22] MEDS ORDERED: FAMOTIDINE 20 MG/2 ML VIAL IV ONE ×2 (03:24→03:30)
[2020-03-22] MEDS ORDERED: CLONIDINE HCL 0.1 MG TAB PO ONE (03:30)
[2020-03-22] MEDS ORDERED: METHYLPREDNISOLONE SOD SUCC 125 MG/2ML VIAL IV ONE (03:30)
[2020-03-22] MEDS ORDERED: DIPHENHYDRAMINE HCL INJ 50 MG/ML VIAL IV ONE (03:30)
[2020-03-22] MEDS ORDERED: DIPHENHYDRAMINE25 MG PO (03:31)
[2020-03-22] MEDS ORDERED: PREDNISONE50 MG PO (03:31)
[2020-03-22] MEDS ORDERED: PEPCID20 MG PO (03:31)
[2020-03-22 03:56] VITALS: BP 146/71
== END 2020-03-22 03:57 | disposition home or self-care (01) ==
LOC: FSED 03:08
DX: R21 Rash and other nonspecific skin eruption (principal); T78.40XA Allergy, unspecified, initial encounter; F41.9 Anxiety disorder, unspecified; K21.9 Gastro-esophageal reflux disease without esophagitis
CPT/HCPCS: 96374; 96375; 96376; 99283; J1200; J2930

== ENCOUNTER 2021-01-02 19:53 | Emergency (ER) | payer OTHER ==
[~2021-01-02] VITALS: Ht 162.6 cm; Wt 83.9 kg
[~2021-01-02 19:53] MED LIST: DIPHENHYDRAMINE25 MG PO; PEPCID20 MG PO; PREDNISONE50 MG PO
[2021-01-02] MEDS ORDERED: PROTONIX20 MG PO (21:15)
[2021-01-02] MEDS ORDERED: DONNATAL/LIDOCAINE/MAALOX 30 ML SUSP PO ONE (21:15)
[2021-01-02] MEDS ORDERED: LIDOCAINE VISC 2% SOLN 15 ML UDC ONE (21:19)
[2021-01-02] MEDS ORDERED: BELLADONNA ALK/PHENOBARBITAL 5 ML UDC ONE (21:19)
[2021-01-02] MEDS ORDERED: MAGNESIUM/ALUMINUM/SIMETHICONE 30 ML UDC ONE (21:19)
== END 2021-01-02 21:50 | disposition home or self-care (01) ==
LOC: FSED 21:01
DX: K21.9 Gastro-esophageal reflux disease without esophagitis (principal); F41.9 Anxiety disorder, unspecified; I10 Essential (primary) hypertension; Z90.49 Acquired absence of other specified parts of digestive tract; Z79.52 Long term (current) use of systemic steroids; Z79.899 Other long term (current) drug therapy
CPT/HCPCS: 93005; 99283

== ENCOUNTER 2021-01-28 23:02 | Emergency (ER) | payer OTHER ==
[~2021-01-28] VITALS: Ht 162.6 cm; Wt 83.9 kg
[~2021-01-28 23:02] MED LIST changes: +PROTONIX20 MG PO
[2021-01-28] MEDS ORDERED: PANTOPRAZOLE SO40 MG PO (23:31)
== END 2021-01-29 00:34 | disposition home or self-care (01) ==
LOC: FSED 23:24
DX: R07.89 Other chest pain (principal); K21.00 Gastro-esophageal reflux disease with esophagitis, without bleeding; F41.9 Anxiety disorder, unspecified
CPT/HCPCS: 71046; 80053; 82553; 84484; 85025; 93005; 99284